=== PATIENT | male | born 1970 | race American Indian/Alaskan Native ===

== ENCOUNTER 2021-11-18 14:40 | Emergency (ER) | payer OTHER, MEDICAID ==
[2021-11-18] MEDS ORDERED: Ketorolac 30 MG/ML SDV IM ONE (16:42)
== END 2021-11-18 17:32 | disposition home or self-care (01) ==
LOC: JP.ED 14:40 → EEVIPCON 14:40 → JP.ED 17:32
DX: S49.91XA Unspecified injury of right shoulder and upper arm, initial encounter (principal); I10 Essential (primary) hypertension; F17.210 Nicotine dependence, cigarettes, uncomplicated; Z79.899 Other long term (current) drug therapy; X50.0XXA Overexertion from strenuous movement or load, initial encounter; Y99.0 Civilian activity done for income or pay
CPT/HCPCS: 73060; 96372; 99283; J1885; 99281

== ENCOUNTER 2021-12-02 05:44 | Day surgery (SDC) | payer OTHER, MEDICAID ==
[~2021-12-02 05:44] MED LIST: fentaNYL 100 MCG/2 ML SDV IV ONE
[2021-12-02] MEDS ORDERED: Lactated Ringers 1,000 ML IV SCH (06:30)
[2021-12-02] MEDS ORDERED: Nozin Nasal Sanitizer NASBOTH ONE (06:30)
[2021-12-02 06:38] LABS: ESTIMATED GFR 91 mL/min (>60)
[2021-12-02] MEDS ORDERED: Bupivacaine 0.5% 30 ML SDV ONE (06:59)
[2021-12-02] MEDS ORDERED: ceFAZolin 1 GM in Premix Bag 1 BAG IV ONE (07:30)
[2021-12-02] MEDS ORDERED: Sugammadex Sodium 200 MG/2 ML VIAL ONE (09:20)
[2021-12-02] MEDS ORDERED: Propofol 200 MG/20 ML SDV ONE (09:20)
[2021-12-02] MEDS ORDERED: Rocuronium 50 MG/5 ML Vial ONE (09:20)
[2021-12-02] MEDS ORDERED: Ketorolac 30 MG/ML SDV ONE (09:20)
[2021-12-02] MEDS ORDERED: Dexamethasone 4 MG/ML SDV ONE (09:20)
[2021-12-02] MEDS ORDERED: fentaNYL 250 MCG/5 ML SDV ONE (09:20)
[2021-12-02] MEDS ORDERED: Succinylcholine 200 MG/10 ML MDV ONE (09:20)
[2021-12-02] MEDS ORDERED: Glycopyrrolate 0.2 MG/ML 5 ML MDV ONE (09:20)
[2021-12-02] MEDS ORDERED: Neostigmine Methylsulfate 1 MG/ML 5 ML Syringe ONE (09:20)
[2021-12-02] MEDS ORDERED: Ondansetron 4 MG/2 ML SDV ONE (09:20)
== END 2021-12-02 11:40 | disposition home or self-care (01) ==
LOC: JP.SDS 05:44
PROVIDERS: ATTEND Specialist
DX: S46.211A Strain of muscle, fascia and tendon of other parts of biceps, right arm, initial encounter (principal); I10 Essential (primary) hypertension; F10.20 Alcohol dependence, uncomplicated; E78.5 Hyperlipidemia, unspecified; E66.9 Obesity, unspecified; R73.03 Prediabetes; Z79.810 Long term (current) use of selective estrogen receptor modulators (SERMs); Z79.899 Other long term (current) drug therapy; X50.9XXA Other and unspecified overexertion or strenuous movements or postures, initial encounter
CPT/HCPCS: 24341; 36415; 80053; 85025; A9270; C1713; C1776; J0330; J0690; J1100; J1885; J2405; J2704; J2710; J3010; J3490; J7120